=== PATIENT | male | born 1950 | race Caucasian/White ===

== ENCOUNTER 2018-04-28 13:26 | Emergency (ER) | payer MEDICARE, OTHER ==
[2018-04-28 13:36] VITALS: BP 150/81; PULSE 85; RESP 18
[2018-04-28] MEDS ORDERED: DEXAMETHASONE 4 MG TAB PO STA (14:03)
[2018-04-28] MEDS ORDERED: PETROLATUM, WHITE OINT 50 GM TUBE TOPICAL STA (14:04)
--- NOTE | 2018-04-28 14:08 | ED ---
General Adult HPI - General Chief complaint: Skin/Abscess/Foreign Body Stated complaint: Skin condition Source: patient Mode of arrival: EMS - Related Data Home Medications Medication Instructions Recorded Confirmed Albuterol Inhaler [Ventolin Hfa 1 - 2 puff INHALATION RT-Q6H PRN 04/28/18 Inhaler] Cyanocobalamin (Vitamin B-12) 1,000 mcg PO DAILY 04/28/18 04/28/18 [Vitamin B-12] Folic Acid 1 mg PO DAILY 04/28/18 04/28/18 Ipratropium-Albuterol Nebulize 3 ml INHALATION RT-Q6H PRN 04/28/18 04/28/18 [Duoneb 0.5 mg-3 mg/3 ml Soln] Lisinopril [Zestril] 10 mg PO DAILY 04/28/18 04/28/18 Loratadine [Claritin] 10 mg PO DAILY 04/28/18 04/28/18 Methadone [Dolophine] 5 mg PO Q4H 04/28/18 04/28/18 Mometasone/Formoterol [Dulera 100 2 puff INHALATION RT-BID 04/28/18 04/28/18 Mcg/5 Mcg Inhaler] hydrOXYzine HCL [Atarax] 20 mg PO HS 04/28/18 04/28/18 Allergies Allergy/AdvReac Type Severity Reaction Status Date / Time doxycycline Allergy Unknown Verified 04/28/18 13:58 Review of Systems ROS Statement: Those systems with pertinent positive or pertinent negative responses have been documented in the HPI. ROS Other: All systems not noted in ROS Statement are negative. Past Medical History Past Medical History: COPD Additional Past Medical History / Comment(s): lung cancer radiation treatment undiagnosed skin disorder History of Any Multi-Drug Resistant Organisms: None Reported, MRSA Date of last positivie culture/infection: Past Surgical History: Back Surgery, Orthopedic Surgery Additional Past Surgical History / Comment(s): carpel tunnel hip Past Psychological History: No Psychological Hx Reported Smoking Status: Former smoker Past Alcohol Use History: Rare Past Drug Use History: None Reported Course Vital Signs 04/28/18 13:31 Pulse Rate 85 Respiratory 18 Rate Blood Pressure 150/81 O2 Sat by Pulse 99 Oximetry Medical Decision Making - Medical Decision Making Dictation was produced using [employer] dictation software. please excuse any grammatical, word or spelling errors. Chief Complaint: 67-year-old male with past medical history lung cancer, COPD presents with diffuse body rash. History of Present Illness: Male presents with diffuse body rash for several years. Patient is from [place] and has seen dermatology however has not been told any definitive diagnosis. He's been managing his rash with creams. Symptoms wax and wane. However secondary to the [place] weather recently his symptoms have been worse. Rest of his symptoms aren't his feet elbows and hands. Denies any constitutional symptoms. The ROS documented in this emergency department record has been reviewed and confirmed by me. Those systems with pertinent positive or negative responses have been documented in the HPI. All other systems are other negative and/or noncontributory. PHYSICAL EXAM: General Impression: Alert and oriented x3, not in acute distress HEENT: Normocephalic atraumatic, extra-ocular movements intact, pupils equal and reactive to light bilaterally, mucous membranes moist. Cardiovascular: Heart regular rate and rhythm, S1&S2 audible, no murmurs, rubs or gallops Chest: Lungs clear to auscultation bilaterally, no rhonchi, no wheeze, no rales Abdomen: Bowel sounds present, abdomen soft, non-tender, non-distended, no organomegaly Musculoskeletal: Pulses present and equal in all extremities, no peripheral edema Motor: Power 5/5 bilaterally, no focal deficits noted Neurological: CN II-XII grossly intact, no focal motor or sensory deficits noted Skin: Multiple dry plaques on erythematous base worse over the extensor surfaces however there is notable findings on the dorsum of the feet palms of the hands. He also has findings over the ears. Appears that his chest and abdomen are spared. Back is erythematous however without dry plaques. Psych: Normal affect and mood ED course: 67-year-old male presents with chief complaint of rash that spent ongoing for 1 year. Vital signs upon arrival are within acceptable limits. Patient's clinical presentation not indicative of a medical emergency given the chronicity of his symptoms. No clinical presentation of Robert Bairon's or toxic epidermal medical lysis. Does not appear to be a drug reaction either. Patient given referral to motor operator. He is given 1 dose of Decadron and Aquaphor to fly to his rash. Disposition Clinical Impression: Rash Disposition: HOME SELF-CARE Instructions: Dermatitis (ED) Is patient prescribed a controlled substance at d/c from ED?: No Referrals: Giacomo Lei DO [Primary Care Provider] - 1-2 days Time of Disposition: 15:40
== END 2018-04-28 16:04 | disposition home or self-care (01) ==
LOC: EC 13:26
DX: R21 Rash and other nonspecific skin eruption (principal); J44.9 Chronic obstructive pulmonary disease, unspecified; Z85.118 Personal history of other malignant neoplasm of bronchus and lung; Z86.14 Personal history of Methicillin resistant Staphylococcus aureus infection; Z98.890 Other specified postprocedural states; Z79.51 Long term (current) use of inhaled steroids; Z79.899 Other long term (current) drug therapy; Z88.1 Allergy status to other antibiotic agents
CPT/HCPCS: 99283; J8540